=== PATIENT | male | born 1995 | race Caucasian/White ===

== ENCOUNTER → 2018-05-23 | Outpatient (CLI) | payer OTHER ==
[~2018-05-23] MED LIST: CIPR-344 PO; FAMO20TA28 PO; HYDR-389 PO; IBUP800T37 PO
== END ==
LOC: LAB 14:37
PROVIDERS: ATTEND Urology
DX: Z02.9 Encounter for administrative examinations, unspecified (principal)

== ENCOUNTER → 2018-05-24 | Outpatient (CLI) | payer OTHER | LOC: LAB 07:36 | PROVIDERS: ATTEND Urology | DX: Z31.41 Encounter for fertility testing (principal) | CPT/HCPCS: 36415; 83001; 84146; 84402; 84403 ==

== ENCOUNTER → 2018-05-25 | Outpatient (CLI) | payer OTHER | LOC: LAB 14:48 | PROVIDERS: ATTEND Urology | DX: Z31.41 Encounter for fertility testing (principal) | CPT/HCPCS: 36415; 83002 ==

== ENCOUNTER 2018-08-03 18:53 | Day surgery (SDC) | payer OTHER ==
--- NOTE | 2018-08-03 19:04 | ER Report ---
History and Physical Time Seen By MD: 19:04 Hx. of Stated Complaint: abdominal pain starting around 1 today. also lower back pain HPI/ROS CHIEF COMPLAINT: abdominal pain HISTORY OF PRESENT ILLNESS: This is a 23 year old male. He started having abdominal pain this afternoon, generalized upset stomach feeling. Now with pain in right lower abdomen. Had some mid low back pain earlier today as well, this is unchanged. Took some Ibuprofen for the back pain, has not taking anything since then, no effect on the abdominal pain. No fevers or chills. No diarrhea, constipation, or bowel changes, no blood or melena. Normal urination without frequency or pain. Nothing makes the pain worse or better. Has had a right orchiectomy in the past, no pain over incision or in groin. No nausea or vomiting. Allergies: Coded Allergies: piperacillin (Verified Allergy, Intermediate, RASH, 08/03/18) tazobactam (Verified Allergy, Intermediate, RASH, 08/03/18) Home Meds Active Scripts Docusate Sodium (DOCUSATE SODIUM) 100 Mg Capsule, 1 CAP PO BID, #30 CAPSULE 0 Refills Prov:HERNÁN SARMIENTO MD 08/03/18 Tramadol Hcl (TRAMADOL HCL) 50 Mg Tablet, 1 TAB PO Q4-6H PRN for PAIN, #20 TAB 0 Refills Prov:HERNÁN SARMIENTO MD 08/03/18 Reported Medications Famotidine (PEPCID) 20 Mg Tablet, 20 MG PO BID, #20 TAB 07/16/16 Reviewed Nurses Notes: Yes Hx Smoking: No Hx Substance Use Disorder: No Constitutional Vital Sign - Last 24 Hours 08/03/18 08/03/18 08/03/18 08/03/18 18:59 19:15 19:30 19:45 Temp 98.8 Pulse 91 83 85 90 Resp 16 B/P (MAP) 145/100 Pulse Ox 97 99 92 97 O2 Delivery Room Air 08/03/18 08/03/18 08/03/18 08/03/18 19:53 20:00 20:15 20:20 Pulse 85 95 B/P (MAP) 148/74 (98) Pulse Ox 94 95 95 97 Physical Exam General Appearance: The patient is alert. No acute distress. Non-toxic in appearance. Eyes: Pupils are equal, round. No pallor, injection or icterus. ENT: Mucous membranes are moist. Normal oral mucosa, normal posterior oropharynx. Respiratory: Lungs are clear to auscultation. Cardiovascular: Regular rate and rhythm. No murmurs, gallops or rubs. Normal capillary refill. Gastrointestinal: Abdomen is soft, tender in lower right abdomen with some discomfort across entire lower abdomen. Nondistended. No rebound or guarding. No masses or organomegaly. Normal active bowel sounds. No costovertebral angle tenderness with percussion. Incision on the lower right groin/inguinal area is soft, nontender, without bulging. Neurological: Alert and oriented x3. Skin: No rashes. Musculoskeletal: No tenderness in palpation of the lumbar spine. DIFFERENTIAL DIAGNOSIS: After history and physical exam, differential diagnosis was considered for abdominal pain including but not limited to appendicitis, cholecystitis, gastritis and urinary tract infection. Medical Decision Making Data Points Result Diagram: 08/03/185 08/03/18 1905 Laboratory Hematology Test 08/03/18 19:05 08/03/18 19:21 Red Blood Count 5.44 M/uL (4.00-5.60) Mean Corpuscular Volume 86.8 fL (80.0-96.0) Mean Corpuscular Hemoglobin 29.2 pg (26.0-33.0) Mean Corpuscular Hemoglobin Concent 33.7 g/dL (32.0-36.0) Red Cell Distribution Width 13.4 % (11.5-14.5) Mean Platelet Volume 8.0 fL (7.2-11.1) Neutrophils (%) (Auto) 82.5 % (39.4-72.5) Lymphocytes (%) (Auto) 8.5 % (17.6-49.6) Monocytes (%) (Auto) 8.3 % (4.1-12.4) Eosinophils (%) (Auto) 0.3 % (0.4-6.7) Basophils (%) (Auto) 0.4 % (0.3-1.4) Nucleated RBC Relative Count (auto) 0.0 /100WBC Neutrophils # (Auto) 12.4 K/uL (2.0-7.4) Lymphocytes # (Auto) 1.3 K/uL (1.3-3.6) Monocytes # (Auto) 1.2 K/uL (0.3-1.0) Eosinophils # (Auto) 0.0 K/uL (0.0-0.5) Basophils # (Auto) 0.1 K/uL (0.0-0.1) Nucleated RBC Absolute Count (auto) 0.01 K/uL Sodium Level 137 mmol/L (137-145) Potassium Level 3.9 mmol/L (3.5-5.0) Chloride Level 102 mmol/L (98-107) Carbon Dioxide Level 26 mmol/L (22-30) Blood Urea Nitrogen 14 mg/dl (9-21) Creatinine 0.90 mg/dl (0.66-1.25) Glomerular Filtration Rate Calc > 60.0 Random Glucose 113 mg/dl (75-110) Calcium Level 9.2 mg/dl (8.4-10.2) Total Bilirubin 0.4 mg/dl (0.2-1.3) Aspartate Amino Transf (AST/SGOT) 30 U/L (0-35) Alanine Aminotransferase (ALT/SGPT) 38 U/L (0-56) Alkaline Phosphatase 75 U/L (0-126) Total Protein 7.9 g/dl (6.3-8.2) Albumin 4.8 g/dl (3.5-5.0) Amylase Level 67 U/L (0-110) Lipase 48 U/L (23-300) Urine Color Yellow Urine Clarity Clear Urine pH 6.0 pH (4.8-9.5) Urine Specific [place] 1.023 Urine Protein Negative mg/dL (NEGATIVE) Urine Glucose (UA) Negative mg/dL (NEGATIVE) Urine Ketones Negative mg/dL (NEGATIVE) Urine Blood Negative (NEGATIVE) Urine Nitrite Negative (NEGATIVE) Urine Bilirubin Negative (NEGATIVE) Urine Urobilinogen Negative mg/dL (0.2-1.9) Urine Leukocyte Esterase Negative (NEGATIVE) Urine RBC <1 /HPF (0-2/HPF) Urine WBC <1 /HPF (0-5/HPF) Urine Squamous Epithelial Cells None /LPF (</=FEW) Urine Bacteria Negative /HPF (NONE-FEW) Urine Mucus None /HPF (NONE-FEW) Chemistry Test 08/03/18 19:05 08/03/18 19:21 White Blood Count 15.0 k/uL (4.5-11.0) Red Blood Count 5.44 M/uL (4.00-5.60) Hemoglobin 15.9 g/dL (14.0-18.0) Hematocrit 47.2 % (42.0-52.0) Mean Corpuscular Volume 86.8 fL (80.0-96.0) Mean Corpuscular Hemoglobin 29.2 pg (26.0-33.0) Mean Corpuscular Hemoglobin Concent 33.7 g/dL (32.0-36.0) Red Cell Distribution Width 13.4 % (11.5-14.5) Platelet Count 306 K/uL (150-450) Mean Platelet Volume 8.0 fL (7.2-11.1) Neutrophils (%) (Auto) 82.5 % (39.4-72.5) Lymphocytes (%) (Auto) 8.5 % (17.6-49.6) Monocytes (%) (Auto) 8.3 % (4.1-12.4) Eosinophils (%) (Auto) 0.3 % (0.4-6.7) Basophils (%) (Auto) 0.4 % (0.3-1.4) Nucleated RBC Relative Count (auto) 0.0 /100WBC Neutrophils # (Auto) 12.4 K/uL (2.0-7.4) Lymphocytes # (Auto) 1.3 K/uL (1.3-3.6) Monocytes # (Auto) 1.2 K/uL (0.3-1.0) Eosinophils # (Auto) 0.0 K/uL (0.0-0.5) Basophils # (Auto) 0.1 K/uL (0.0-0.1) Nucleated RBC Absolute Count (auto) 0.01 K/uL Glomerular Filtration Rate Calc > 60.0 Calcium Level 9.2 mg/dl (8.4-10.2) Total Bilirubin 0.4 mg/dl (0.2-1.3) Aspartate Amino Transf (AST/SGOT) 30 U/L (0-35) Alanine Aminotransferase (ALT/SGPT) 38 U/L (0-56) Alkaline Phosphatase 75 U/L (0-126) Total Protein 7.9 g/dl (6.3-8.2) Albumin 4.8 g/dl (3.5-5.0) Amylase Level 67 U/L (0-110) Lipase 48 U/L (23-300) Urine Color Yellow Urine Clarity Clear Urine pH 6.0 pH (4.8-9.5) Urine Specific [place] 1.023 Urine Protein Negative mg/dL (NEGATIVE) Urine Glucose (UA) Negative mg/dL (NEGATIVE) Urine Ketones Negative mg/dL (NEGATIVE) Urine Blood Negative (NEGATIVE) Urine Nitrite Negative (NEGATIVE) Urine Bilirubin Negative (NEGATIVE) Urine Urobilinogen Negative mg/dL (0.2-1.9) Urine Leukocyte Esterase Negative (NEGATIVE) Urine RBC <1 /HPF (0-2/HPF) Urine WBC <1 /HPF (0-5/HPF) Urine Squamous Epithelial Cells None /LPF (</=FEW) Urine Bacteria Negative /HPF (NONE-FEW) Urine Mucus None /HPF (NONE-FEW) Urinalysis Test 08/03/18 19:21 Urine Color Yellow Urine Clarity Clear Urine pH 6.0 pH (4.8-9.5) Urine Specific [place] 1.023 Urine Protein Negative mg/dL (NEGATIVE) Urine Glucose (UA) Negative mg/dL (NEGATIVE) Urine Ketones Negative mg/dL (NEGATIVE) Urine Blood Negative (NEGATIVE) Urine Nitrite Negative (NEGATIVE) Urine Bilirubin Negative (NEGATIVE) Urine Urobilinogen Negative mg/dL (0.2-1.9) Urine Leukocyte Esterase Negative (NEGATIVE) Urine RBC <1 /HPF (0-2/HPF) Urine WBC <1 /HPF (0-5/HPF) Urine Squamous Epithelial Cells None /LPF (</=FEW) Urine Bacteria Negative /HPF (NONE-FEW) Urine Mucus None /HPF (NONE-FEW) EKG/Imaging Imaging EXAMINATION: CT abdomen and pelvis with contrast COMPARISON: None. HISTORY: Abdomen pain and low back pain. PROCEDURE: Multiplanar contrast enhanced CT of the abdomen and pelvis with 75 mL intravenous Isovue 370. One of the following dose optimization techniques was utilized in the performance of this exam: Automated exposure control; adjustment of the mA and/or kV according to the patient's size; or use of an iterative reconstruction technique. Specific details can be referenced in the facility's radiology CT exam operational policy. FINDINGS: Visualized thorax: Negative. Liver: Negative. Gallbladder and biliary system: Negative Spleen: Negative. Pancreas: Negative. Adrenal glands: Negative. Kidneys and bladder: No renal mass or evidence of an obstructive uropathy. Urinary bladder is unremarkable. Vessels: Within normal limits. Bowel and mesentery: Stomach is within normal limits. No small bowel obstruction or inflammation. The appendix is dilated to 1.2 cm and contains numerous calcified appendicoliths including a dominant 6 mm appendicolith in the proximal appendix. There is mild periappendiceal inflammation but no extraluminal gas or fluid collection. Small amount of stool in the colon. No colonic inflammation. Pelvic organs: Negative. Lymph nodes: No adenopathy. Free air/free fluid: None. Abdominal wall and osseous structures: Tiny fat-containing umbilical hernia. Osseous structures are intact with minimal degenerative change in the lower thoracic spine. IMPRESSION: Acute uncomplicated appendicitis. Results were discussed with AUSTIN ODOM at 08/03/2018 8:40 PM. Report Dictated By: Maykel Monae MD at 08/03/2018 8:32 PM ED Course/Re-evaluation Clinical Indication for ER IV: IV Access ED Course Labs evaluated and the patient does have an elevated white blood cell count. CT scan was obtained and shows uncomplicated appendicitis. Discussed with Dr. Schilling to take the patient to the OR. Started Zosyn 3.375 g IV. Decision to Disposition Date: Aug 03, 2018 Decision to Disposition Time: 20:41 Depart Departure Latest Vital Signs Vital Signs Date Time Temp Pulse Resp B/P (MAP) Pulse Ox O2 Delivery O2 Flow Rate FiO2 08/03/18 20:20 95 97 08/03/18 20:00 148/74 (98) 08/03/18 18:59 98.8 16 Room Air Impression: Primary Impression: Appendicitis Condition: Condition Unchanged Disposition: ADMIT FROM ER TO OR New Scripts Docusate Sodium (DOCUSATE SODIUM) 100 Mg Capsule 1 CAP PO BID, #30 CAPSULE 0 Refills Prov: HERNÁN SARMIENTO MD 08/03/18 Tramadol Hcl (TRAMADOL HCL) 50 Mg Tablet 1 TAB PO Q4-6H PRN for PAIN, #20 TAB 0 Refills Prov: HERNÁN SARMIENTO MD 08/03/18 Problem Qualifiers Primary Impression: Appendicitis Appendicitis type: acute appendicitis Acute appendicitis type: with localized peritonitis Appendicitis gangrene presence: without gangrene Appendicitis perforation presence: without perforation Appendicitis abscess presence: without abscess Qualified Codes: K35.30 - Acute appendicitis with localized peritonitis, without perforation or gangrene AUSTIN ODOM MD Aug 03, 2018 19:04
[2018-08-03 19:40] LABS: PLATELET COUNT, AUTOMATED 306 K/uL (150-450)
[2018-08-03] MEDS ORDERED: IOPAMIDOL 76% 150 ML INFUS BTL 150 ML ONE (20:03)
--- NOTE | 2018-08-03 20:44 | RADIOLOGY IMAGING REPORT ---
FACILITY: [facility] PATIENT NAME: Michael Henao : 1995 MR: [id number] V: [id number] EXAM DATE: ORDERING PHYSICIAN: AUSTIN ODOM TECHNOLOGIST: Location: [facility] [place] Patient: Michael Henao : 1995 Visit/Account:[id number] Date of Sevice: 08/03/2018 EXAMINATION: CT abdomen and pelvis with contrast COMPARISON: None. HISTORY: Abdomen pain and low back pain. PROCEDURE: Multiplanar contrast enhanced CT of the abdomen and pelvis with 75 mL intravenous Isovue 3 70. One of the following dose optimization techniques was utilized in the performance of this exam: A utomated exposure control; adjustment of the mA and/or kV according to the patient's size; or use of an iterative reconstruction technique. Specific details can be referenced in the facility's radiolo gy CT exam operational policy. FINDINGS: Visualized thorax: Negative. Liver: Negative. Gallbladder and biliary system: Negative Spleen: Negative. Pancreas: Negative. Adrenal glands: Negative. Kidneys and bladder: No renal mass or evidence of an obstructive uropathy. Urinary bladder is unrema rkable. Vessels: Within normal limits. Bowel and mesentery: Stomach is within normal limits. No small bowel obstruction or inflammation. The appendix is dilated to 1.2 cm and contains numerous calcified appendicoliths including a dominant 6 mm appendicolith in the proximal appendix. There is mild periappendiceal inflammation but no extralum inal gas or fluid collection. Small amount of stool in the colon. No colonic inflammation. Pelvic organs: Negative. Lymph nodes: No adenopathy. Free air/free fluid: None. Abdominal wall and osseous structures: Tiny fat-containing umbilical hernia. Osseous structures are i ntact with minimal degenerative change in the lower thoracic spine. IMPRESSION: Acute uncomplicated appendicitis. Results were discussed with AUSTIN ODOM at 08/03/2018 8:40 PM. Report Dictated By: Maykel Monae MD at 08/03/2018 8:32 PM Report E-Signed By: Maykel Monae MD at 08/03/2018 8:40 PM WSN:[id number]
[2018-08-03] MEDS ORDERED: NORMOSOL R SOLN(*) 1000 ML BAG 1,000 ML IV ONE (20:50)
[2018-08-03] MEDS ORDERED: FAMOTIDINE(*) 20MG/50ML PREMIX 50 ML IVPB ONE (20:55)
[2018-08-03] MEDS ORDERED: ROPIVACAINE 0.5% 20 ML VIAL ONE (21:03)
[2018-08-03] MEDS: PIPERACILLIN/TAZO*3.375GM VIAL 3.375 GM in NS(*) 0.9% 100 ML MINI-BAG 100 ML IVPB ONE ×2 (21:03→21:29)
[2018-08-03 21:14] VITALS: BP 137/97
[2018-08-03] MEDS ORDERED: LIDOCAINE MPF 1% 5 ML VIAL ONE (21:16)
[2018-08-03] MEDS ORDERED: PROPOFOL EMUL(*) 10MG/ML 20 ML 20 ML ONE (21:16)
[2018-08-03] MEDS ORDERED: fentaNYL CITR 250 MCG/5 ML AMP ONE (21:16)
[2018-08-03] MEDS ORDERED: DEXAMETHASONE SOD 4 MG/ML VIAL ONE (21:16)
[2018-08-03] MEDS ORDERED: SUGAMMADEX SOD 200 MG/2 ML SDV ONE (21:16)
[2018-08-03] MEDS ORDERED: ONDANSETRON 4 MG/2 ML VIAL ONE (21:16)
[2018-08-03] MEDS ORDERED: ROCURONIUM BROM 10 MG/ML 10 ML ONE (21:16)
--- NOTE | 2018-08-03 21:30 | Gen Surgery History & Physical ---
History of Present Illness Chief Complaint Abdominal pain History of Present Illness 23yo male, otherwise healthy, presents with 1 day of abdominal pain. Actually awoke this morning with back pain, which unusual for him and then it became ge neralized abdominal pain and then migrated to the RLQ. No N/V, diarrhea or constipation, no F/C. He has lost his appetite after noon. He's had an orchiectomy and orchiopexy after a horse accident with testicular injury. No other medical problems or medications. History Home Meds Reported Medications Famotidine (PEPCID) 20 Mg Tablet, 20 MG PO BID, #20 TAB 07/16/16 Allergies: Coded Allergies: No Known Drug Allergies (Unverified , 07/15/16) Review of Systems All Systems Reviewed/Normal: Yes, Except as Noted Gastrointestinal: Abdominal Pain Exam General Appearance: Alert, Awake, No Acute Distress, Afebrile Neuro: No Gross deficits Eyes: PERRLA GI: Other (RLQ TTP with focal peritonitis) Extremities: Warm, Perfused Psych: Alert & Oriented X3, Appropriate Mood & Affect Medical Decision Making Data Points Result Diagram: 08/03/18190408/03/181904 Assessment and Plan Problems: (1) Appendicitis Status: Acute Assessment & Plan: 08/03/18: Admit to OR, NPO, IV fluids, IV abx, to OR for lap appy. I have explained this plan, including surgery, in great detail to the patient and his . 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 I have explained the alternatives, risks, and ex pected recovery and their questions have been answered to their apparent satisfaction. He would like to proceed with this plan including surgery. Condition Stable. Time Spent: < 30 min Venous Thromboembolism VTE Risk Physician Assess for VTE Risk: Yes Patient's VTE Risk: Low VTE Diagnostic Test 2 Days Prior to Admit: No Antithrombotics Is Pt On Any Antithrombotics?: No Problem Qualifiers (1) Appendicitis: Appendicitis type: acute appendicitis Acute appendicitis type: with localized peritonitis Appendicitis gangrene presence: without gangrene Appendicitis perforation presence: without perforation Appendicitis abscess presence: without abscess Qualified Codes: K35.30 - Acute appendicitis with localized peritonitis, without perforation or gangrene HERNÁN SARMIENTO MD Aug 03, 2018 21:30
[2018-08-03] MEDS ORDERED: KETAMINE HCL 200 MG/20 ML MDV ONE (21:37)
[2018-08-03] MEDS ORDERED: ESMOLOL 10 MG/ML 10ML SDV ONE (21:39)
[2018-08-03] MEDS ORDERED: DOCU-202 PO (22:44)
[2018-08-03] MEDS ORDERED: TRAM-420 PO (22:44)
--- NOTE | 2018-08-03 22:48 | Short(Outpt) Discharge Summary ---
Discharge Summary Reason for Hosp/Final Diag: (1) Appendicitis Status: Acute Hospital Course & Plan: 08/03/18: Admit to OR, NPO, IV fluids, IV abx, to OR for lap appy. I have explained this plan, including surgery, in great detail to the patient and his . 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 I have explained the alternatives, risks, and expected recovery and their questions have been answered to their apparent satisfaction. He would like to proceed with this plan including surgery. 08/03/18 (postop): Lap appy completed without problems. Pt tolerated the surgery without issues. He did have an apparent reaction to Zosyn and so this was added to his allergy profile in the EMR. Will d/c to home. Departure Discharge to: Home, Self Care Discharge Instructions Home Meds Active Scripts Docusate Sodium (DOCUSATE SODIUM) 100 Mg Capsule, 1 CAP PO BID, #30 CAPSULE 0 Refills Prov:HERNÁN SARMIENTO MD 08/03/18 Tramadol Hcl (TRAMADOL HCL) 50 Mg Tablet, 1 TAB PO Q4-6H PRN for PAIN, #20 TAB 0 Refills Prov:HERNÁN SARMIENTO MD 08/03/18 Reported Medications Famotidine (PEPCID) 20 Mg Tablet, 20 MG PO BID, #20 TAB 07/16/16 Follow up Referrals: General Surgery - 08/18/18 @ Surgery, General with HERNÁN SARMIENTO MD You have a follow up appointment scheduled with Dr. Sarmiento on 08/18/18, at 9:45am. Diet: Regular Activity: As Tolerated Special Instructions: You may remove the white surgical dressings on 08/05/18, then you can shower. After showering, leave the incisions open to air but leave the steristrips in place until they fall off on their own. Do not immerse the incisions for 2 weeks. Avoid activities that involves straining or lifting more than 10 pounds for 2 weeks after surgery. Problem Qualifiers (1) Appendicitis: Appendicitis type: acute appendicitis Acute appendicitis type: with localized peritonitis Appendicitis gangrene presence: without gangrene Appendicitis perforation presence: without perforation Appendicitis abscess presence: without abscess Qualified Codes: K35.30 - Acute appendicitis with localized peritonitis, without perforation or gangrene HERNÁN SARMIENTO MD Aug 03, 2018 22:48
--- NOTE | 2018-08-03 22:54 | Post Operative Progress Note ---
Post Operative Progress Note Date: Aug 03, 2018 Time: 22:49 Surgeon: Donny Dictation number: [id number] Anesthesia: GETA by Dr. Berkwoitz Pre-Op Diagnosis: Acute appendicitis Post-Op Diagnosis: DAYNA Findings: Appendicitis, no purulence, gangrene, or perforation Procedure(s): Lap appy Specimen Removed:(May be N/A): Appendix Complications: None Fluids: See anesthesia record Estimated Blood Loss: Minimal Date OP Note Dictated: Aug 03, 2018 Time OP Note Dictated: 22:50 HERNÁN SARMIENTO MD Aug 03, 2018 22:54
[2018-08-03] MEDS ORDERED: ACET/HYDROC 5/325MG TH ER ONLY 2 TAB/BOTTLE ONE (23:03)
--- NOTE | 2018-08-04 02:39 | OPERATIVE REPORT 1 ---
EVENT DATE: August 03, 2018 SURGEON: Thaddeus Hines MD ANESTHESIOLOGIST: Dashawn Cabral MD ANESTHESIA: General endotracheal. PREOPERATIVE DIAGNOSIS Acute appendicitis. POSTOPERATIVE DIAGNOSIS Acute appendicitis. PROCEDURE PERFORMED Laparoscopic appendectomy. COMPLICATIONS None. CONDITION Stable. BLOOD LOSS Minimal. INDICATIONS This is a 23-year-old gentleman who presented to the emergency room with a one- day history of abdominal pain that migrated to the right lower quadrant, and workup revealed a white blood cell count of 14,000. A CT was consistent with acute appendicitis. I was then consulted for further evaluation and management. Patient consented for a laparoscopic appendectomy. DESCRIPTION OF PROCEDURE The patient was brought to the operating room and placed supine on the operating table. General endotracheal anesthesia was administered, and his abdomen was prepped and draped in a sterile fashion. A time-out was completed, and I injected the infraumbilical skin with 0.5% ropivacaine plain. I made a curvilinear [id number] incision in the infraumbilical rim and dissected through the dermis and subcutaneous fat. I then identified the midline fascia and made a vertical incision in the midline fascia, grasped the fascial edges with Bryn clamps, and retracted the fascia toward the ceiling. I then bluntly entered the peritoneal cavity with my finger, placed two interrupted 0 Vicryl sutures transversely through the vertical fascial defect, and inserted a 12 mm Aaliyah-type port through the umbilical wound and secured it in place with sutures. I then insufflated the abdomen to a pressure of 15 mmHg and inserted a 5 mm 30-degree angled scope through this port. Next, under direct visualization, I placed a 5 mm port in the suprapubic midline and another 5 mm port in the left lower quadrant. Patient was placed in Trendelenburg and planed toward his left to move the viscera from the right lower quadrant, and the appendix was located and the mesoappendix was divided with the LigaSure device all the way down to its base, and then the base of the appendix was divided with the EndoGIA 45 mm stapler with the blue load. The appendix was placed in a surgical specimen retrieval bag and removed from the abdomen. I irrigated the right lower quadrant and inspected the staple line as well as the divided mesoappendix, and there was no bleeding. The staple line was flush with the cecum, and it did not impede the terminal ileum or ileocecal valve. When this was completed, I removed the 5 mm ports and the camera and desufflated the abdomen, removed the umbilical port, and then placed a [id number] 0 Vicryl suture in the midline fascia between the preplaced sutures, and then tied all three of these down with good reapproximation of fascial edges. I then closed the skin incisions with 4-0 Monocryl subcuticular sutures. The skin was cleaned, dried, and Steri-Strips were applied, followed by sterile surgical dressings. Patient was awakened, extubated in the operating room, and transported to the recovery room in stable condition, having tolerated the procedure without any apparent problems. YAN
== END 2018-08-03 23:59 | disposition home or self-care (01) ==
LOC: ER 19:25 → OR 21:03
PROVIDERS: ATTEND Surgery
DX: K35.30 Acute appendicitis with localized peritonitis, without perforation or gangrene (principal)
CPT/HCPCS: 44970; 74177; 81001; 82150; 83690; 85025; 88304; 94640; 96365; 96375; 99284; J1100; J2001; J2405; J2543; J2704; J2795; J3010; J3490; Q9967; 82040; 82247; 82310; 82374; 82435; 82565; 82947; 84075; 84132; 84155; 84295; 84450; 84460; 84520